=== PATIENT | male | born 1975 | race Caucasian/White ===

== ENCOUNTER 2018-08-29 23:55 | Emergency (ER) | payer MEDICAID ==
[~2018-08-29] VITALS: Ht 175.3 cm; Wt 89.2 kg
[~2018-08-29 23:55] MED LIST: PRED50TA PO
[2018-08-30] VITALS: BP 145/95
[2018-08-30] MEDS ORDERED: ondansetron/PF 4mg/2ml inj IV ONE (00:20)
[2018-08-30] MEDS ORDERED: normal saline 1000ML IV soln IVB ONE (00:20)
[2018-08-30] MEDS ORDERED: morphine 4 MG/ML inj SYRINge IV PRN (00:20)
[2018-08-30] MEDS ORDERED: methylPREDNISolone sod succ 125mg/2ml vial IV ONE (00:55)
[2018-08-30] MEDS ORDERED: morphine 4 MG/ML inj SYRINge IV ONE (00:55)
[2018-08-30] MEDS ORDERED: ondansetron inj. 24 MG in normal saline 250ml IV soln 228 ML IV SCH (00:55)
[2018-08-30 01:16] LABS: BASOPHILS # (AUTO) 0.1 X10'3 (0-0.2); BASOPHILS % (AUTO) 1.1 % (0-1); EOSINOPHILS # (AUTO) 0.1 X10'3 (0-0.9); EOSINOPHILS % (AUTO) 1.8 % (0-6); HEMATOCRIT 40.7 % (42.0-52.0); HEMOGLOBIN 13.5 g/dl (14.0-17.9); LYMPHOCYTES # (AUTO) 2.4 X10'3 (1.1-4.8); LYMPHOCYTES % (AUTO) 29.9 % (21-51); MEAN CORPUSCULAR HEMOGLOBIN 28.7 PG (27.0-31.0); MEAN CORPUSCULAR HGB CONC 33.3 g/dL (33.0-36.5); MEAN CORPUSCULAR VOLUME 86.1 FL (78-98); MEAN PLATELET VOLUME 7.7 FL (7.4-10.4); MONOCYTES # (AUTO) 1.1 X10'3 (0-0.9); MONOCYTES % (AUTO) 13.2 % (2-12); NEUTROPHILS # (AUTO) 4.4 X10'3 (1.8-7.7); PLATELET COUNT 308 X10'3 (140-440); RED BLOOD COUNT 4.72 X10'6 (4.70-6.10); RED CELL DISTRIBUTION WIDTH 19.1 % (11.5-14.5); WHITE BLOOD COUNT 8.2 X10'3 (4.5-11.0)
[2018-08-30 01:25] LABS: CLARITY,URINE CLEAR (Clear); COLOR,URINE STRAW (Yellow); GLUCOSE, URINE NEGATIVE (Neg); KETONES,URINE NEGATIVE (Neg); LEUKOCYTE ESTERASE ,URINE NEGATIVE (Neg); NITRITES, URINE NEGATIVE (Neg); OCCULT BLOOD,URINE NEGATIVE (Neg); PH,URINE 5.5 (4.8-8.0); PROTEIN,URINE NEGATIVE (Neg); UROBILINOGEN,URINE 0.2 E.U/dL (0.2-1.0)
[2018-08-30 01:25] LABS: ALANINE AMINOTRANSFERASE 36 U/L (12-78); ALBUMIN 3.5 G/DL (3.4-5.0); ALKALINE PHOSPHATASE 59 IU/L (46-116); ANION GAP 9 (8-16); ASPARTATE AMINO TRANSFERASE 23 U/L (10-37); BILIRUBIN,TOTAL 0.2 MG/DL (0.1-1.0); BLOOD UREA NITROGEN 7 MG/DL (7-18); BUN/CREATININE RATIO 7.3 (5.4-32.0); CALCIUM 8.1 MG/DL (8.5-10.1); CHLORIDE 103 MMOL/L (99-107); CREATININE 0.96 MG/DL (0.60-1.10); GLUCOSE 82 MG/DL (70-104); LIPASE 226 U/L (73-393); POTASSIUM 3.7 MMOL/L (3.5-5.1); SODIUM 138 MMOL/L (135-145); TOTAL PROTEIN 7.1 G/DL (6.4-8.2); eGFR 86 ML/MIN
[2018-08-30] MEDS ORDERED: PRED20TA PO (01:27)
[2018-08-30 01:31] LABS: UA COLLECTION TYPE CLN CATCH MIDSTREAM
[2018-08-30 02:01] LABS: ANISOCYTOSIS 2+; PLATELET ESTIMATE NORMAL
== END 2018-08-30 01:53 | disposition home or self-care (01) ==
LOC: ER 23:55
DX: K50.90 Crohn's disease, unspecified, without complications (principal); Z88.6 Allergy status to analgesic agent; Z88.0 Allergy status to penicillin; Z79.899 Other long term (current) drug therapy
CPT/HCPCS: 36415; 74176; 80053; 81003; 83690; 85025; 96374; 96375; 99284; J2270; J2405; J2930; J7030; 96361